=== PATIENT | female | born 1990 | race African-American/Black ===

== ENCOUNTER 2018-12-09 12:20 | Emergency (ER) | payer OTHER ==
[2018-12-09] MEDS: ACETAMINOPHEN 500 MG TABLET PO ONE (13:00)
--- NOTE | 2018-12-09 13:07 | ED Physician Documentation ---
Sore Throat/Dental Pain - HISTORIAN Historian: patient - HPI Chief Complaint: Dental Pain Onset: days ago Context: Dental Caries Associated Symptoms: severe Further Comments: yes (28 year old female patient presents with complaints of dental pain. Has not used any OTC medications today. Is 34 weeks . PATIENCE 01/21/2019. LMP 04/16/18; G 5, P4) - ROS CONST: no problems CVS/RESP: none GI/: denies: nausea, vomiting MS/SKIN/LYMPH: denies: muscle aches, rash, leg swelling, ankle swelling, other NEURO/PSYCH: none - PAST HX Past History: none Immunizations: UTD Allergies/Adverse Reactions: Allergies Allergy/AdvReac Type Severity Reaction Status Date / Time No Known Allergies Allergy Verified 12/09/18 13:39 Home Medications: Ambulatory Orders Medication Instructions Recorded Vit/Iron Fum/Folic AC 1 tab PO DAILY 12/09/18 [ Tablet] - SOCIAL HX Smoking History: cigarettes - FAMILY HX Family History: No - REVIEWED ASSESSMENTS Nursing Assessment Reviewed: Yes Vitals Reviewed: Yes Progress - Progress Progress: Patient requested dental block, then refused dental block. Tylenol given in ER. Dental list provided. ED Results Lab/Radiology - Orders Orders: ED Orders Category Date Time Status Acetaminophen [Tylenol Extra Strength] Med 12/09/18 12:40 Discontinued 1,000 mg PO NOW ONE Dental Pain Physical Exam - EXAM General Appearance: no acute distress, alert Mouth/Throat: lips nml, pharynx nml, voice nml, no drooling, no air way problems, no thrush, membranes nml, gum swelling around teeth (left upper molar), widespread dental decay (to gumline; multiple missing teeth.) Respiratory: no resp. distress CVS: reg. rate & rhythm Abdomen: other (protuberant; 33 weeks ; active fetus. ) Skin: warm/dry, normal color Neuro/Psych: none Discharge Clincal Impression: Dental caries Referrals: Primary Doctor,No [Primary Care Provider] - 2 Days Additional Instructions: Dental Pain Tylenol 650-1000mg every 4 hours as needed for pain, limit your dose to 4G in 24 hours. Over the counter DenTek - follow package directions. Over the counter Orajel as needed for pain supply aide your antibiotic today. See your dentist as soon as possible Condition: Stable Disposition: 01 HOME, SELF-CARE Decision to Admit: NO Decision Time: 13:07
[2018-12-09 13:46] VITALS: BP 116/66
== END 2018-12-09 13:16 | disposition home or self-care (01) ==
LOC: ED 12:20
DX: K02.9 Dental caries, unspecified (principal)
CPT/HCPCS: 99283; 99284

== ENCOUNTER 2018-12-09 17:37 | Emergency (ER) | payer OTHER ==
--- NOTE | 2018-12-09 17:57 | ED Physician Documentation ---
General Adult - HISTORIAN Historian: patient - HPI Stated Complaint: dental pain Chief Complaint: General Adult Timing: worse Further Comments: yes (28 year old female patient presents for second ER visit today. Patient was seen earlier today for dental pain, discharged with amoxil, tylenol given at 1211. Patient returns with worsening pain, states she took 1 amoxil.) - ROS CONST: recent illness (dental pain) EYES/ENT: none CVS/RESP: none GI/: none MS/SKIN/LYMPH: none NEURO/PSYCH: denies: headache - PAST HX Past History: other (33 weeks ; G5, P4) Allergies/Adverse Reactions: Allergies Allergy/AdvReac Type Severity Reaction Status Date / Time No Known Allergies Allergy Verified 12/09/18 17:54 Home Medications: Ambulatory Orders Medication Instructions Recorded Vit/Iron Fum/Folic AC 1 tab PO DAILY 12/09/18 [ Tablet] - SOCIAL HX Smoking History: cigarettes - FAMILY HX Family History: No - VITAL SIGNS Vital Signs: Vital Signs Temp Pulse Resp BP Pulse Ox 98.3 F 111 H 14 112/61 99 12/09/18 17:42 12/09/18 17:42 12/09/18 17:42 12/09/18 17:42 12/09/18 17:42 - REVIEWED ASSESSMENTS Nursing Assessment Reviewed: Yes Vitals Reviewed: Yes Progress - Progress Progress: Patient demanding dental block. Offered viscous lidocaine cotton balls, explained it would last longer. Patient states she went home and took naproxen. Instructed patient not to use naproxen while . 1800 Patient left AMA ED Results Lab/Radiology - Orders Orders: ED Orders Category Date Time Status Lidocaine 2% Viscous [Xylocaine 2% Viscous] Med 12/09/18 17:56 Once 30 ml MM NOW ONE General Adult Physical Exam - PHYSICAL EXAM GENERAL APPEARANCE: patient left prior to assessment NEURO: oriented X3 Discharge Clincal Impression: Left against medical advice Referrals: Primary Doctor,No [Primary Care Provider] - 2 Days Decision to Admit: NO Decision Time: 18:11
[2018-12-09] MEDS ORDERED: ACETAMINOPHEN 500 MG TABLET PO ONE (17:58)
[2018-12-09 18:03] VITALS: BP 112/61
== END 2018-12-09 18:04 ==
LOC: ED 17:37
DX: Z53.21 Procedure and treatment not carried out due to patient leaving prior to being seen by health care provider (principal)
CPT/HCPCS: 96372; 99283